=== PATIENT | female | born 1985 | race Caucasian/White ===

== ENCOUNTER 2019-12-06 02:47 | Emergency (ER) | payer MEDICAID, OTHER, SELFPAY ==
[~2019-12-06] VITALS: Ht 172.7 cm; Wt 150.0 kg
[2019-12-06 02:50] VITALS: BP 168/90
[2019-12-06] MEDS ORDERED: DEXAMETHASONE 4 MG TABLET ONE (03:20)
[2019-12-06] MEDS ORDERED: CEFTRIAXONE 250 MG IM ONE (03:30)
[2019-12-06] MEDS ORDERED: DEXAMETHASONE 4 MG TABLET PO ONE (03:30)
[2019-12-06] MEDS ORDERED: CEFTRIAXONE 250 MG ONE (03:38)
[2019-12-06] MEDS ORDERED: AZITHROMYCIN 500 MG TABLET PO ONE (04:00)
--- NOTE | 2019-12-06 04:01 | NUR ---
TASK RN: NO S/S OF ABX RXN NOTED. DC EDUCATION PROVIDED, PT DEMONSTRATES UNDERSTANDING. PT AMBULATORY TO DC WITH RN. FRIEND TO TRANSPORT PT HOME.
[2019-12-06] MEDS ORDERED: AZITHROMYCIN 250 MG TABLET ONE ×2 (04:11→04:17)
== END 2019-12-06 04:24 | disposition home or self-care (01) ==
LOC: ED 03:32
DX: J02.9 Acute pharyngitis, unspecified (principal); E03.9 Hypothyroidism, unspecified
CPT/HCPCS: 87081; 87147; 87491; 87591; 87880; 96372; 99283; J0696

== ENCOUNTER 2020-04-30 14:19 | Emergency (ER) | payer MEDICAID ==
[~2020-04-30] VITALS: Ht 172.7 cm; Wt 144.8 kg
--- NOTE | 2020-04-30 15:01 | NUR ---
PT PRESENTS WITH BILATERAL CHRONIC DISCOLORATION OF FEET. PT COMPLAINT OF PAIN IN THE BACK OF HER LEFT LEG AND "CAN FEEL MY VEIN [place]"
[2020-04-30 15:49] VITALS: BP 160/80
== END 2020-04-30 16:39 | disposition home or self-care (01) ==
LOC: ED 16:20
DX: S86.912A Strain of unspecified muscle(s) and tendon(s) at lower leg level, left leg, initial encounter (principal); I10 Essential (primary) hypertension; X58.XXXA Exposure to other specified factors, initial encounter; Y93.89 Activity, other specified; Y92.89 Other specified places as the place of occurrence of the external cause; Y99.8 Other external cause status
CPT/HCPCS: 99284